=== PATIENT | female | born 1970 | race Caucasian/White ===

== ENCOUNTER 2019-01-16 00:35 | Emergency (ER) | payer OTHER ==
[~2019-01-16] VITALS: Ht 165.1 cm; Wt 102.1 kg
[2019-01-16 00:37] VITALS: BP 184/85
[2019-01-16] MEDS ORDERED: ZYRTEC10 M4 PO (00:42)
== END 2019-01-16 01:36 | disposition home or self-care (01) ==
LOC: ER 00:35
DX: S61.216A Laceration without foreign body of right little finger without damage to nail, initial encounter (principal); Z88.5 Allergy status to narcotic agent; W25.XXXA Contact with sharp glass, initial encounter; Y93.89 Activity, other specified; Y92.89 Other specified places as the place of occurrence of the external cause; Y99.8 Other external cause status